=== PATIENT | female | born 1990 | race Caucasian/White ===

== ENCOUNTER 2024-08-01 22:26 | Emergency (ER) | payer BC, SELFPAY ==
[2024-08-01 22:28] VITALS: BP 157/98
[2024-08-01 22:58] VITALS: BMI 32.8
--- NOTE | 2024-08-01 23:01 | ED.GENMED ---
History of Present Illness
<Angela Quintero PA-C - Last Filed: 08/02/24 01:28>
General
Chief Complaint: Chest Pain
Source: patient
Exam Limitations: none
Time Seen by Provider: 08/01/24 22:34
Nursing documentation reviewed up to this point in time: agreed with
History of Present Illness
History of Present Illness:
Patient is a 33-year-old female presenting to the emergency department for evaluation of chest pain. Patient states she was sitting down, getting ready for bed when symptoms started initially. She describes a sharp pain in her epigastric/mid chest
which initially lasted about 15 minutes. She then had two additional episodes of this pain when lying down. Upon arrival to the emergency department�symptoms seem to resolve. There was no exertional component to pain
Patient reports a mild pain in her right mid back. She also feels pain is worse when she takes a deep breath. She denies any tearing back pain. She denies any associated headache, visual changes, numbness/tingling extremities. Patient denies any
associated nausea, vomiting.
Patient reports somewhat similar quality pain prior to her cholecystectomy in 2022.
Patient has no known personal or family history of heart disease. No personal or family history of blood clots.
Patient denies recent travel or recent surgeries. She is on a progesterone only OCP.
Review of Systems
<Angela Quintero PA-C - Last Filed: 08/02/24 01:28>
Review of Systems
Allergies reviewed?: Yes
All Other Systems: ROS reviewed and negative except as documented in HPI and ROS
Phy Exam
<Angela Quintero PA-C - Last Filed: 08/02/24 01:28>
Physical Exam
Physical Exam:
Vitals: Hypertensive, otherwise vital signs stable. Afebrile
General: Patient is well appearing, no acute distress. Nontoxic appearing
Skin: Warm and dry, no rashes or lesions
Head: Normocephalic, atraumatic
Eyes: Sclera nonicteric. EOMs intact. No nystagmus.
Throat: Protecting airway
Neck: Normal ROM, no cervical spine tenderness, no meningismus
Cardiac: Regular rate and rhythm, no murmurs. No reproducible chest wall tenderness
Pulm: Normal respiratory effort, no wheezes, rales, rhonchi heard on exam.
Abdomen: Abdomen soft and nontender. Specifically no right upper quadrant tenderness.
Extremities: No evidence of cyanosis or edema. Palpable DP pulses
Neuro: AAOx3. Grossly intact.
Psychiatric: Normal affect.
Scores
<Shoshana Bee PA-C - Last Filed: 08/02/24 03:25>
Heart Score for Chest Pain Patients
STEMI patient?: No
History: Slightly or Non-Suspicious
ECG: Normal
Age: </= 45 years
Risk Factors: 1 or 2 Risk Factors
Troponin: </= Normal Limit
Heart Score for Chest Pain Patients: 1
Heart Score Risk: 2.5% MACE over next 6 weeks
Course
<Angela Quintero PA-C - Last Filed: 08/02/24 01:28>
Orders/Labs/Results
Orders:
Orders
08/01/24 22:27
ECG [Electrocardiogram (*1)] Urgent
Reason for Study: Chest Pain
EKG- Treatment ONCE
08/01/24 22:44
Test Result ONCE
08/01/24 22:56
Complete Blood Count/With Diff Urgent
Comprehensive Metabolic Panel Urgent
D-Dimer Urgent
HCG, Serum Qualitative Screen Urgent
Lipase Urgent
Troponin I Urgent
08/01/24 23:35
CR Chest - 2 Views Urgent
Comment:
Reason For Exam: epigastric chest pain
08/01/24 23:45
Electrocardiogram (*1) Urgent
Reason for Study: Chest Pain
Famotidine [Pepcid] 20 mg IV NOW STA
08/02/24 00:00
US Abdomen Complete/Upper Urgent
Comment: hx cholecystectomy
Reason For Exam: Epigastric pain, transaminitis
08/02/24 02:00
Electrocardiogram (*1) Urgent
Reason for Study: Chest Pain
EKG- Treatment ONCE
08/02/24 02:02
Troponin I Urgent
Abnormal Lab Results
08/01/24
22:56
WBC 12.0 H 10^3/uL
(4.8-10.8)
MCV 80.1 L fL
(81.0-99.0)
Absolute Neuts (auto) 9.6 H 10^3/uL
(1.4-6.5)
Neutrophils % 79.6 H %
(42.2-75.2)
Lymphocytes % 14.2 L %
(20.5-51.1)
AST 202 H U/L
(14-36)
ALT 120 H U/L
(0-35)
08/01/24 22:56
08/01/24 22:56
Vital Signs
Initial and Last Documented VS:
Initial Vital Signs
Temp Pulse Resp BP Pulse Ox
98.1 F 81 20 157/98 99
08/01/24 22:28 08/01/24 22:28 08/01/24 22:28 08/01/24 22:28 08/01/24 22:28
Last Documented Vital Signs
Temp Pulse Resp BP Pulse Ox
98.3 F 82 14 146/93 100
08/02/24 00:13 08/02/24 01:45 08/02/24 01:45 08/02/24 02:00 08/02/24 02:00
Georgeslt;Shoshana Bee PA-C - Last Filed: 08/02/24 03:25>
Orders/Labs/Results
Orders:
Orders
08/01/24 22:27
ECG [Electrocardiogram (*1)] Urgent
Reason for Study: Chest Pain
EKG- Treatment ONCE
08/01/24 22:44
Test Result ONCE
08/01/24 22:56
Complete Blood Count/With Diff Urgent
Comprehensive Metabolic Panel Urgent
D-Dimer Urgent
HCG, Serum Qualitative Screen Urgent
Lipase Urgent
Troponin I Urgent
08/01/24 23:35
CR Chest - 2 Views Urgent
Comment:
Reason For Exam: epigastric chest pain
08/01/24 23:45
Electrocardiogram (*1) Urgent
Reason for Study: Chest Pain
Famotidine [Pepcid] 20 mg IV NOW STA
08/02/24 00:00
US Abdomen Complete/Upper Urgent
Comment: hx cholecystectomy
Reason For Exam: Epigastric pain, transaminitis
08/02/24 02:00
Electrocardiogram (*1) Urgent
Reason for Study: Chest Pain
EKG- Treatment ONCE
08/02/24 02:02
Troponin I Urgent
Abnormal Lab Results
08/01/24
22:56
WBC 12.0 H 10^3/uL
(4.8-10.8)
MCV 80.1 L fL
(81.0-99.0)
Absolute Neuts (auto) 9.6 H 10^3/uL
(1.4-6.5)
Neutrophils % 79.6 H %
(42.2-75.2)
Lymphocytes % 14.2 L %
(20.5-51.1)
AST 202 H U/L
(14-36)
ALT 120 H U/L
(0-35)
08/01/24 22:56
08/01/24 22:56
Vital Signs
Initial and Last Documented VS:
Initial Vital Signs
Temp Pulse Resp BP Pulse Ox
98.1 F 81 20 157/98 99
08/01/24 22:28 08/01/24 22:28 08/01/24 22:28 08/01/24 22:28 08/01/24 22:28
Last Documented Vital Signs
Temp Pulse Resp BP Pulse Ox
98.3 F 82 14 146/93 100
08/02/24 00:13 08/02/24 01:45 08/02/24 01:45 08/02/24 02:00 08/02/24 02:00
<Angela Quintero PA-C - Last Filed: 08/02/24 01:28>
MDM/Problems Addressed
Differential Diagnosis Includes:
Not limited to: GERD, costochondritis, pleurisy, pulmonary embolism, acute coronary syndrome, etc.
MDM/Problems Addressed:
33-year-old female presenting after 3 episodes of intermittent epigastric pain associated with mild pain in right mid back starting this evening. No exertional component to symptoms. No fever, nausea/vomiting. No associated shortness of breath or
lightheadedness. Patient arrives mildly hypertensive, otherwise stable vital signs. Initial EKG obtained in triage shows normal sinus rhythm without acute ischemic changes. Physical exam as above. Patient well-appearing, no apparent distress,
and asymptomatic on my initial evaluation. Cardio/pulmonary assessment unremarkable. No reproducible chest wall or back tenderness. Abdomen soft and nontender without any tenderness in right upper quadrant. Patient has 2+ radial pulses and is
perfusing well. Patient does have history of cholecystectomy in 2022. Differential broad at this time, patient appears very well. Will obtain basic labs, D-dimer, troponin, chest x-ray. Will closely monitor and reassess.
Update: Labs reviewed. Mild leukocytosis. D-dimer negative at 0.39. Troponin undetectable. Patient does have mildly elevated LFTs AST/ALT which may be chronic secondary to past cholecystectomy. However given vague epigastric discomfort
associated with LFT elevation�will obtain abdominal ultrasound to rule out possible CBD stone. Plan to trend troponins.
Update 8853: I was called to patient's bedside as she had another episode of epigastric chest pain. An EKG was performed which shows normal sinus rhythm without any acute ischemic changes. Will treat with IV Pepcid. Patient remains
hemodynamically stable.
Update 12:25 AM: Into reassess patient. Pain improved following IV Pepcid. Ultrasound pending. Plan for repeat troponin.
Update 1:21 AM: Ultrasound without acute findings. CBD normal. Patient remains asymptomatic. Case was signed out to attending physician pending repeat troponin
Chronic conditions affecting care:
Past cholecystectomy
<Angela Quintero PA-C - Last Filed: 08/02/24 01:28>
*Radiology
Radiology exam reviewed: preliminary read by ED provider (Chest x-ray reviewed by pa-no acute disease of chest) and radiology read reviewed
*Pulse Oximetry
Patient hypoxic: no
*EKG
Interpreted by ED Provider?: Yes
EKG Intrepretation Date: 08/01/24
Interpretation: normal
Comparison EKG: no comparison EKG present
Heart Rate: 77
Rate: normal
Rhythm: sinus
[place]: normal axis
Interval: normal interval
QRS Pattern: normal QRS
Ischemia: no ischemia
*Fiber Drier Operator Interpretation
Rate: Fiber Drier Operator- N/A
*Critical Care Note
Total Time (30-74mins, 75-104mins- exclusive of procedures): Not Applicable
<Angela Quintero PA-C - Last Filed: 08/02/24 01:28>
Update Note
Update Note:
Update 12:25 AM: Into reassess patient. Pain improved following IV Pepcid. Ultrasound pending. Plan for repeat troponin.
Update 1:21 AM: Ultrasound without acute findings. CBD normal. Patient remains asymptomatic. Case was signed out to attending physician pending repeat troponin.
<Shoshana Bee PA-C - Last Filed: 08/02/24 03:25>
Update Note
Update Note:
Update 12:25 AM: Into reassess patient. Pain improved following IV Pepcid. Ultrasound pending. Plan for repeat troponin.
Update 1:21 AM: Ultrasound without acute findings. CBD normal. Patient remains asymptomatic. Case was signed out to attending physician and PA pending repeat troponin.

Update 3:20 am: Received signout from patient at 1:21 AM, on reassessment, patient is well-appearing in no acute distress she has no pain at this time, her repeat troponin is undetectable, patient is stable for discharge, did recommend 2-week course
of Pepcid, recommended follow-up with her primary, discussed return precautions
ED Attending Note
<Angela Quintero PA-C - Last Filed: 08/02/24 01:28>
-
Portions of this chart may have been created with voice recognition software.� Occasional wrong word or��sound alike� substitutions may have occurred due to the inherent limitations of voice recognition software.
Discharge Plan
Departure
Patient Disposition: Home (Routine Discharge)
Date of Disposition: 08/02/24
Time of Disposition: 03:21
Patient with high blood pressure during this ER visit?: Yes
Condition: Good
Discharge Problem:
Chest pain
Instructions: Chest pain - Discharge instructions, BLOOD PRESSURE
Prescriptions:
No Action
fluoxetine 10 mg Tablet
10 mg PO HS
norethindrone (contraceptive) 0.35 mg Tablet
0.35 mg PO DAILY
acetaminophen [acetaminophen] 325 mg tablet
650 mg PO Q6HPRN PRN (Reason: mild pain) Qty: 14 0RF
tramadol 50 mg tablet
25 mg PO Q6HPRN PRN (Reason: severe pain/breakthrough pain) Qty: 8 0RF
ibuprofen 600 mg tablet
600 mg PO Q6H PRN (Reason: pain) Qty: 14 0RF
Referrals:
Felicity Turner LEAD PASTOR [Family Provider] -
Activity Restrictions/Additional Instructions:
Your repeat EKG was normal with no signs of any abnormalities. Your repeat troponin was undetectable. Your ultrasound today showed no evidence of enlargement of the common bile duct.
Please follow-up with your primary care provider in 1 week to have your blood work repeated.
You can take Pepcid once daily in the morning for 2-week trial.
PLEASE RETURN EMERGENCY DEPARTMENT SHOULD YOU DEVELOP AN ACUTE WORSENING OF YOUR SYMPTOMS, SHORTNESS OF BREATH, LIGHTHEADEDNESS OR DIZZINESS, INTRACTABLE NAUSEA OR VOMITING, DARK TARRY STOOLS, RECTAL BLEEDING, ANY OTHER SIGNS OR SYMPTOMS WORRISOME
TO YOU.
Interventions
Interventions:
*Risk Screen - Suicide Last Done: 08/01/24 22:50
*General Assessment Last Done: 08/01/24 22:28
*Neglect/Abuse Screening Last Done: 08/01/24 22:50
*ED- Fall Risk Assessment Last Done: 08/01/24 22:50
*ED COVID-19 Vaccine History Last Done: 08/01/24 22:50
ED- Cardiac Assessment Last Done: 08/02/24 02:00
Discharge Date and Time
Print Language: SLOVENIAN
[2024-08-01 23:03] VITALS: BP 133/89
[2024-08-01 23:06] LABS: % Basophils 0.5 % (0-2); % Eosinophils 1.1 % (0-6); % Immature Granulocytes 0.2 % (0-0.5); % Lymphocytes 14.2 % (20.5-51.1); % Monocytes 4.4 % (1.7-9.3); % Neutrophils 79.6 % (42.2-75.2); Absolute Basophils 0.1 10^3/uL (0-0.2); Absolute Eosinophils 0.1 10^3/uL (0-0.7); Absolute Lymphocytes 1.7 10^3/uL (1.2-3.4); Absolute Monocytes 0.5 10^3/uL (0.1-0.6); Absolute Neutrophils 9.6 10^3/uL (1.4-6.5); Hematocrit 37.8 % (37.0-47.0); Hemoglobin 13.4 g/dL (12.0-16.0); Mean Corp Hgb Conc. 35.4 g/dL (33.0-37.0); Mean Corpuscular Hgb 28.4 pg (27.0-31.0); Mean Corpuscular Volume 80.1 fL (81.0-99.0); Mean Platelet Volume 8.8 fL (7.4-10.4); Nucleated Red Blood Cells % 0 %; Platelet Count 279 10^3/uL (130-400); Red Blood Cell Count 4.72 10^6/uL (4.20-5.40)
[2024-08-01 23:18] LABS: D-Dimer 0.39 ug/mlFEU (0.00-0.50)
[2024-08-01 23:26] LABS: ALT (SGPT) 120 U/L (0-35); AST (SGOT) 202 U/L (14-36); Albumin 3.9 g/dl (3.5-5.0); Alkaline Phosphatase 71 U/L (38-126); Blood Urea Nitrogen 17 mg/dl (7-17); Calcium 8.8 mg/dl (8.4-10.2); Carbon Dioxide 26 mmol/L (22-30); Chloride 106 mmol/L (98-107); Estimated Creatinine Clearance 117 ml/min; Glucose 96 mg/dl (70-99); Lipase 151 U/L (23-300); Potassium 3.7 mmol/L (3.5-5.1); Sodium 139 mmol/L (135-145); Total Protein 6.4 g/dl (6.3-8.2); eGFR > 60.00
[2024-08-01 23:30] LABS: HCG, Serum Qualitative Screen Negative
[2024-08-01 23:31] LABS: Troponin I < 0.012 ng/ml
[2024-08-01] MEDS: PEPCID 20 MG IV (23:50)
[2024-08-02 00:02] VITALS: BP 136/90
[2024-08-02 00:44] VITALS: BP 144/92
[2024-08-02 01:00] VITALS: BP 151/87
[2024-08-02 02:00] VITALS: BP 146/93
[2024-08-02 03:10] LABS: Troponin I < 0.012 ng/ml
== END 2024-08-02 03:37 | disposition home or self-care (01) ==
LOC: EMR 22:26
PROVIDERS: Physician Assistant; EMERGENCY PHYSICIAN Emergency Medicine; FAMILY PHYSICIAN Nurse Practitioner Family
DX: R07.89 Other chest pain (principal); R10.13 Epigastric pain; I10 Essential (primary) hypertension; Z90.49 Acquired absence of other specified parts of digestive tract
CPT/HCPCS: 99285; 71046; 76700; 80053; 83690; 84484; 84703; 85025; 85379; 93005